=== PATIENT | female | born 1980 | race Hispanic/Latino ===

== ENCOUNTER 2021-01-09 19:14 | Emergency (ER) | payer BC ==
[~2021-01-09] VITALS: Ht 149.9 cm; Wt 60.3 kg
== END 2021-01-09 21:34 | disposition home or self-care (01) ==
LOC: FSED 19:21
DX: H53.8 Other visual disturbances (principal); E11.65 Type 2 diabetes mellitus with hyperglycemia
CPT/HCPCS: 36415; 82948; 99282